=== PATIENT | female | born 1970 | race Caucasian/White ===

== ENCOUNTER → 2017-10-26 | Outpatient (CLI) | payer MEDICAID ==
[~2017-10-26] MED LIST: GADOBUTROL 10 ML VIAL IVP ONE
== END ==
LOC: FIMAGING 14:26
PROVIDERS: ATTEND Internal Medicine Hematology & Oncology
DX: C34.90 Malignant neoplasm of unspecified part of unspecified bronchus or lung (principal); C77.0 Secondary and unspecified malignant neoplasm of lymph nodes of head, face and neck; C77.1 Secondary and unspecified malignant neoplasm of intrathoracic lymph nodes; C77.9 Secondary and unspecified malignant neoplasm of lymph node, unspecified
CPT/HCPCS: A9585

== ENCOUNTER → 2018-07-04 | Outpatient (CLI) | payer MEDICAID | LOC: FIMAGING 09:07 | PROVIDERS: ATTEND Internal Medicine Hematology & Oncology | DX: J98.4 Other disorders of lung (principal); Z85.118 Personal history of other malignant neoplasm of bronchus and lung ==